=== PATIENT | male | born 1975 | race African-American/Black ===

== ENCOUNTER 2018-10-08 17:50 | Emergency (ER) | payer OTHER ==
[2018-10-08] MEDS ORDERED: Lidocaine 1% w/Epinephrine 1:100K 20 ML VIAL ONE (18:46)
[2018-10-08 18:58] LABS: #Lymphocytes 0.9 thou/uL (1.20-3.40); #Monocytes 0.3 thou/uL (0.11-0.59); %Basophils 0.2 % (0.0-1.0); %Eosinophils 0.1 % (0.0-10.0); %Lymphocytes 12.3 % (21.0-51.0); %Monocytes 3.9 % (0.0-10.0); %Neutrophils 83.6 % (42.0-75.0); Hemoglobin 16.2 g/dL (14.0-18.0); Mean Corpuscular HGB CONC 32.3 g/dL (32.0-36.0); Mean Corpuscular Hemoglobin 29.8 pg (27.0-31.0); Mean Corpuscular Volume 92.3 fL (78.0-98.0); Mean Platelet Volume 9.1 fL (7.4-10.4); Platelet Count 251 thou/uL (130-400); RBC Distribution Width 14.4 % (11.5-14.5); Red Blood Cell (RBC) Count 5.45 mill/uL (4.70-6.10); White Blood Cell (WBC) Count 7.2 thou/uL (4.8-10.8)
[2018-10-08 19:18] LABS: ALT (SGPT) 84 U/L (8-55); AST (SGOT) 100 U/L (5-34); Albumin 3.6 g/dL (3.5-5.0); Alkaline Phosphatase 76 U/L (40-150); Anion Gap 14 mmol/L (10-20); BUN (Urea Nitrogen) 11 mg/dL (8.9-20.6); Bilirubin, Total 0.3 mg/dL (0.2-1.2); Calc. Creatinine Clearance 0 mL/min (70-130); Calcium 9.4 mg/dL (7.8-10.44); Carbon Dioxide 24 mmol/L (22-29); Chloride 106 mmol/L (98-107); Estimated GFR-MDRD Greater than 90; Globulin 3.9 g/dL (2.4-3.5); Glucose 157 mg/dL (70-105); Potassium 4.2 mmol/L (3.5-5.1); Protein, Total 7.5 g/dL (6.0-8.3); Sodium 140 mmol/L (136-145)
[2018-10-08] MEDS ORDERED: Bacitracin Zinc 1 Packet ONE (19:26)
[2018-10-08 19:44] LABS: CKMB 239.4 ng/mL (0-6.6)
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
== END 2018-10-08 19:59 | disposition left against medical advice (07) ==
LOC: ERS 17:50
DX: S01.81XA Laceration without foreign body of other part of head, initial encounter (principal); I47.1 Supraventricular tachycardia; R79.89 Other specified abnormal findings of blood chemistry; F31.9 Bipolar disorder, unspecified; E11.9 Type 2 diabetes mellitus without complications; F17.210 Nicotine dependence, cigarettes, uncomplicated; Z79.4 Long term (current) use of insulin; Z79.899 Other long term (current) drug therapy; Z79.82 Long term (current) use of aspirin; Y04.0XXA Assault by unarmed brawl or fight, initial encounter
CPT/HCPCS: 12015; 36415; 70450; 80053; 82553; 83735; 84484; 85025; 93005; J2001

== ENCOUNTER 2018-10-18 09:32 | Emergency (ER) | payer OTHER | END 2018-10-18 09:46 | disposition home or self-care (01) | LOC: ERS 09:32 | DX: S01.112D Laceration without foreign body of left eyelid and periocular area, subsequent encounter (principal); E11.9 Type 2 diabetes mellitus without complications; F31.9 Bipolar disorder, unspecified; F17.210 Nicotine dependence, cigarettes, uncomplicated; Z79.899 Other long term (current) drug therapy; X58.XXXD Exposure to other specified factors, subsequent encounter ==

== ENCOUNTER 2019-02-24 07:17 | Emergency (ER) | payer OTHER | END 2019-02-24 07:35 | disposition left against medical advice (07) | LOC: ERS 07:17 | DX: Z53.21 Procedure and treatment not carried out due to patient leaving prior to being seen by health care provider (principal) ==

== ENCOUNTER 2019-12-28 18:40 | Emergency (ER) | payer OTHER ==
[2019-12-28] MEDS ORDERED: HYDROcodone/Acetaminophen 5/325 mg Tablet ONE (19:41)
[2019-12-28] MEDS ORDERED: Ibuprofen 800 MG TAB ONE (19:41)
== END 2019-12-28 19:55 | disposition home or self-care (01) ==
LOC: ERS 18:40
DX: M33.20 Polymyositis, organ involvement unspecified (principal); E11.9 Type 2 diabetes mellitus without complications; E78.5 Hyperlipidemia, unspecified; E78.00 Pure hypercholesterolemia, unspecified; I10 Essential (primary) hypertension; Z71.6 Tobacco abuse counseling; F17.210 Nicotine dependence, cigarettes, uncomplicated; Z79.01 Long term (current) use of anticoagulants; Z79.4 Long term (current) use of insulin; Z79.899 Other long term (current) drug therapy
CPT/HCPCS: 99406

== ENCOUNTER 2023-08-02 12:51 | Emergency (ER) | payer OTHER ==
[2023-08-02 13:58] LABS: #Eosinphils 0.1 thou/uL (0.0-0.7); #Monocytes 0.5 thou/uL (0.11-0.59); #Neutrophils 3.2 thou/uL (1.40-6.50); %Basophils 0.5 % (0.0-1.0); %Eosinophils 0.9 % (0.0-10.0); %Lymphocytes 32.3 % (21.0-51.0); %Monocytes 8.8 % (0.0-10.0); %Neutrophils 57.1 % (42.0-75.0); Hemoglobin 15.1 g/dL (14.0-18.0); Mean Corpuscular HGB CONC 32.1 g/dL (32.0-36.0); Mean Corpuscular Hemoglobin 29.5 pg (27.0-31.0); Mean Platelet Volume 10.7 fL (7.4-10.4); Platelet Count 309 10x3/uL (130-400); RBC Distribution Width 14.9 % (11.5-14.5); Red Blood Cell (RBC) Count 5.11 mill/uL (4.70-6.10); White Blood Cell (WBC) Count 5.5 10x3/uL (4.8-10.8)
[2023-08-02 14:21] LABS: Acetaminophen Less than 10 mcg/mL (10.0-30.0); Alcohol Less than 10.0 mg/dL (Less than 10); Lipase 35 U/L (8-78); Magnesium 2.1 mg/dL (1.6-2.6); Salicylate Less than 8.0 mg/dL (15.0-30.0)
[2023-08-02 14:22] LABS: ALT (SGPT) 18 U/L (8-55); AST (SGOT) 21 U/L (5-34); Albumin 3.8 g/dL (3.5-5.0); Alkaline Phosphatase 102 U/L (40-110); Anion Gap 17 mmol/L (10-20); BUN (Urea Nitrogen) 17 mg/dL (8.9-20.6); Bilirubin, Total 0.6 mg/dL (0.2-1.2); Calc. Creatinine Clearance 0 mL/min (70-130); Carbon Dioxide 18 mmol/L (22-29); Chloride 107 mmol/L (98-107); Estimated GFR 114; Globulin 2.9 g/dL (2.4-3.5); Glucose 101 mg/dL (70-105); Potassium 3.8 mmol/L (3.5-5.1); Protein, Total 6.7 g/dL (6.0-8.3); Sodium 138 mmol/L (136-145)
[2023-08-02 14:25] LABS: Troponin I 0.017 ng/mL (< 0.028)
[2023-08-02 14:26] LABS: INR-International Normal Ratio 1.1; PTT 33.3 sec (22.9-36.1); Prothrombin Time 14.3 sec (12.0-14.7)
[2023-08-02] MEDS ORDERED: Aspirin 325 MG TAB ONE (15:53)
[2023-08-02 17:09] LABS: Troponin I 0.012 ng/mL (< 0.028)
== END 2023-08-02 17:44 ==
LOC: ERS 12:51
DX: R41.82 Altered mental status, unspecified (principal); I48.91 Unspecified atrial fibrillation; E11.9 Type 2 diabetes mellitus without complications; E78.5 Hyperlipidemia, unspecified; I10 Essential (primary) hypertension; F17.210 Nicotine dependence, cigarettes, uncomplicated; Z79.899 Other long term (current) drug therapy; Z79.01 Long term (current) use of anticoagulants
CPT/HCPCS: 36415; 70450; 71045; 80053; 80307; 83605; 83690; 83735; 83880; 84484; 85025; 85610; 85730; 93005

== ENCOUNTER 2023-08-02 23:42 | Observation (INO) | payer OTHER ==
[2023-08-03] MEDS ORDERED: fentaNYL 50 mcg/mL 1 mL Vial ONE (00:27)
[2023-08-03 00:41] LABS: #Eosinphils 0.1 thou/uL (0.0-0.7); #Monocytes 0.6 thou/uL (0.11-0.59); #Neutrophils 2.4 thou/uL (1.40-6.50); %Basophils 0.4 % (0.0-1.0); %Lymphocytes 38.5 % (21.0-51.0); %Monocytes 12.1 % (0.0-10.0); %Neutrophils 47.4 % (42.0-75.0); Hemoglobin 14.2 g/dL (14.0-18.0); Mean Corpuscular HGB CONC 32.3 g/dL (32.0-36.0); Mean Corpuscular Hemoglobin 29.2 pg (27.0-31.0); Mean Corpuscular Volume 90.5 fl (78.0-98.0); Mean Platelet Volume 10.3 fL (7.4-10.4); Platelet Count 310 10x3/uL (130-400); RBC Distribution Width 14.8 % (11.5-14.5); Red Blood Cell (RBC) Count 4.86 mill/uL (4.70-6.10); White Blood Cell (WBC) Count 5.1 10x3/uL (4.8-10.8)
[2023-08-03] MEDS ORDERED: HYDROcodone/Acetaminophen 5/325 mg Tablet ONE (00:44)
[2023-08-03 01:03] LABS: ALT (SGPT) 19 U/L (8-55); AST (SGOT) 20 U/L (5-34); Albumin 3.8 g/dL (3.5-5.0); Alkaline Phosphatase 96 U/L (40-110); Anion Gap 13 mmol/L (10-20); BUN (Urea Nitrogen) 16 mg/dL (8.9-20.6); Bilirubin, Total 0.4 mg/dL (0.2-1.2); Calc. Creatinine Clearance 0 mL/min (70-130); Carbon Dioxide 24 mmol/L (22-29); Chloride 106 mmol/L (98-107); Estimated GFR 117; Glucose 108 mg/dL (70-105); Potassium 3.7 mmol/L (3.5-5.1); Protein, Total 6.8 g/dL (6.0-8.3); Sodium 139 mmol/L (136-145)
[2023-08-03 01:06] LABS: Troponin I 0.014 ng/mL (< 0.028)
[2023-08-03] MEDS ORDERED: Aspirin Chewable 81 MG TAB ONE (01:54)
[2023-08-03] MEDS ORDERED: Acetaminophen 325 MG TAB PO PRN (04:00)
[2023-08-03] MEDS ORDERED: METHOTREXATE 2.5 MG/ML PO SCH (04:00)
[2023-08-03] MEDS ORDERED: Lactated Ringer's 1,000 ML IV SCH (04:00)
[2023-08-03] MEDS ORDERED: Ondansetron ODT 4 MG TAB SL PRN (04:00)
[2023-08-03] MEDS ORDERED: Ondansetron PF 4 MG/2 ML Vial IVP PRN (04:00)
[2023-08-03] MEDS ORDERED: Glucagon 1 MG/ML KIT IM PRN (04:14)
[2023-08-03] MEDS ORDERED: Dextrose 5% in Water 1,000 ML IV PRN (04:14)
[2023-08-03] MEDS ORDERED: Dextrose 50% Abboject 50 ML SYRINGE SLOW IVP PRN (04:14)
[2023-08-03] MEDS ORDERED: HumaLOG 300 UNITS/3 ML VIAL SC PRN (04:14)
[2023-08-03] MEDS ORDERED: METHOTREXATE 2.5 MG PO SCH (04:15)
[2023-08-03 04:51] VITALS: BMI 33.2
[2023-08-03 04:58] LABS: Hemoglobin A1c 8.7 % (4.0-6.0)
[2023-08-03 05:50] LABS: Cardiac Risk 5.3 (Less than 4.5)
[2023-08-03 07:30] LABS: Troponin I 0.021 ng/mL (< 0.028)
[2023-08-03] MEDS ORDERED: Amlodipine 5 MG TAB ONE (08:13)
[2023-08-03] MEDS ORDERED: Furosemide 40 MG TAB ONE (08:13)
[2023-08-03] MEDS ORDERED: Folic Acid 1 MG TAB ONE (08:13)
[2023-08-03] MEDS ORDERED: Apixaban 5 MG TAB PO SCH ×2 (08:15→09:00)
[2023-08-03] MEDS ORDERED: Furosemide 20 MG TAB PO SCH (09:00)
[2023-08-03] MEDS ORDERED: Folic Acid 1 MG TAB PO SCH (09:00)
[2023-08-03] MEDS ORDERED: Empagliflozin 10 MG TAB PO SCH (09:00)
[2023-08-03] MEDS ORDERED: Losartan 25 MG TAB PO SCH (09:00)
[2023-08-03] MEDS ORDERED: Amlodipine 5 MG TAB PO SCH (09:00)
[2023-08-03] MEDS ORDERED: Amiodarone 200 MG TAB PO SCH (09:00)
[2023-08-03] MEDS ORDERED: Iopamidol 370 76% 100 ML VIAL ONE (09:53)
[2023-08-03] MEDS ORDERED: Regadenoson 0.4 MG/5 ML SYRINGE ONE (10:05)
[2023-08-03] MEDS ORDERED: Ketorolac Tromethamine 30 MG/ML VIAL IVP SCH (15:30)
[2023-08-03 16:10] VITALS: BP 147/88; TEMP 97.8
[2023-08-03] MEDS ORDERED: Atorvastatin Calcium 40 MG TAB PO SCH (21:00)
[2023-08-03] MEDS ORDERED: Atorvastatin Calcium 10 MG TAB PO SCH ×2 (21:00)
[2023-08-05] MEDS ORDERED: Methotrexate Sodium 2.5 MG TAB PO SCH (09:00)
[2023-08-06] MEDS ORDERED: FLU VACC QS2023-24(6MOS UP)/PF 60 MCG/0.5 ML SYRINGE IM ONE (09:00)
== END 2023-08-03 17:18 | disposition home or self-care (01) ==
LOC: ERS 23:42 → EEVIPCON 08-03 03:15 → ERHOLD 08-03 03:15 → 2SW 08-03 13:23
PROVIDERS: ADMIT Family Medicine; ATTEND Family Medicine
DX: R07.9 Chest pain, unspecified (principal); I11.0 Hypertensive heart disease with heart failure; I50.20 Unspecified systolic (congestive) heart failure; I48.91 Unspecified atrial fibrillation; M33.20 Polymyositis, organ involvement unspecified; E11.9 Type 2 diabetes mellitus without complications; E78.5 Hyperlipidemia, unspecified; R00.1 Bradycardia, unspecified; F17.210 Nicotine dependence, cigarettes, uncomplicated; Z88.1 Allergy status to other antibiotic agents; Z79.01 Long term (current) use of anticoagulants; Z79.4 Long term (current) use of insulin; Z79.899 Other long term (current) drug therapy
CPT/HCPCS: 36415; 36416; 71045; 71275; 78452; 80053; 80061; 83036; 83880; 84443; 84484; 85025; 93005; 93017; A9500; G0378; J2785; J3010; J7120; Q9967